=== PATIENT | female | born 1965 | race Caucasian/White ===

== ENCOUNTER → 2019-10-26 13:22 | Outpatient (CLI) | payer OTHER, SELFPAY ==
--- NOTE | ~2019-10-26 | MM_ITS ---
EXAMINATION: MM screening [facility] w deven HISTORY: Screening mammogram TECHNIQUE: Craniocaudal and mediolateral oblique 3-D tomosynthesis images were obtained and synthetic 2-D images were generated. CAD analysis was submitted and interpreted. COMPARISON: Comparison to multiple prior studies sequentially, with oldest reviewed study dated 11/2015.. BREAST PARENCHYMAL COMPOSITION: There are scattered areas of fibroglandular density. FINDINGS: There is no evidence of suspicious mass, calcification, or architectural distortion to sugg est malignancy in either breast. There has been no suspicious interval change. IMPRESSION: 1. No mammographic evidence of malignancy. 2. Recommend routine screening mammography in one year. BI-RADS Category 1: Negative Reviewed, dictated and finalized at location A. ERS ADVISER
== END ==
PROVIDERS: Visit Provider Obstetrics & Gynecology
DX: Z12.31 Encounter for screening mammogram for malignant neoplasm of breast (principal)
CPT/HCPCS: 77063; 77067

== ENCOUNTER → 2021-01-22 16:55 | Outpatient (CLI) | payer BC, OTHER, SELFPAY ==
--- NOTE | ~2021-01-22 | MM_ITS ---
EXAMINATION: MM screening [facility] BI w deven HISTORY: Screening mammogram TECHNIQUE: Craniocaudal and mediolateral oblique 3-D tomosynthesis images were obtained and synthetic 2-D images were generated. CAD analysis was submitted and interpreted. COMPARISON: 10/26/2019, 08/29/2018, 08/27/2017 bilateral digital screening mammogram examinations BREAST PARENCHYMAL COMPOSITION: There are scattered areas of fibroglandular density. FINDINGS: There is focal asymmetry in the upper outer quadrant of the left breast at mid depth on crayon sawyer niocaudal view. Diagnostic left mammogram and left breast ultrasound examination are recommended. There is no evidence of suspicious mass, calcification, or architectural distortion to suggest malign kaylee in the right breast. There has been no suspicious interval change on the right. IMPRESSION: 1. Left upper outer quadrant mammographic asymmetry 2. Diagnostic left mammogram and left breast ultrasound examination are recommended BI-RADS Category 0: Incomplete: Needs additional imaging evaluation. Reviewed, dictated and finalized at location A. IMPRESSION: 1. Left upper outer quadrant mammographic asymmetry 2. Diagnostic left mammogram and left breast ultrasound examination are recomme nded BI-RADS Category 0: Incomplete: Needs additional imaging evaluation.
== END ==
PROVIDERS: Visit Provider Obstetrics & Gynecology
DX: Z12.31 Encounter for screening mammogram for malignant neoplasm of breast (principal); R92.8 Other abnormal and inconclusive findings on diagnostic imaging of breast
CPT/HCPCS: 77063; 77067

== ENCOUNTER 2021-02-06 08:49 | Outpatient (CLI) | payer BC, OTHER, SELFPAY ==
--- NOTE | ~2021-02-06 | MMUS_ITS ---
EXAMINATION: MM diagnostic mammo BI, US breast BI limited HISTORY: Left upper quadrant mammographic asymmetry reported on 01/22/2021 screening mammogram. Questi on of right breast mass upon retrospective review of right screening mammogram views of 01/22/2021. TECHNIQUE: Additional 3-D tomosynthesis images of both breasts were performed and synthetic 2-D image s were generated. CAD analysis was submitted and interpreted. High resolution bilateral upper outer q uadrant breast ultrasound was performed. COMPARISON: 01/22/2021 bilateral digital screening mammogram FINDINGS: MAMMOGRAPHIC FINDINGS: There is asymmetry and question of architectural distortion in the upper outer left breast. No reproducible focal mass is suggested on either side. ULTRASOUND: Right upper outer quadrant breast ultrasound: No suspicious mass or shadowing is detected. Left upper outer quadrant breast ultrasound: 1:00 3 cm from nipple: Parallel circumscribed sonolucency measuring 5.3 x 1.5 x 1.46 mm, consistent w ith cyst 1:00 3 cm from nipple: 3.1 x 1.7 x 2.1 mm cyst 3:00 2 cm from nipple: 3.0 x 1.4 x 3.5 mm simple cyst No suspicious mass or shadowing is detected. IMPRESSION: 1. Benign left breast cyst. No evidence of malignancy in either breast. 2. Routine annual mammographic screening is recommended. BI-RADS Category 2: Benign finding(s). Reviewed, dictated and finalized at location A. IMPRESSION: 1. Benign left breast cyst. No evidence of malignancy in either breast. 2. Routine annual mammographic screening is recommended. BI-RADS Category 2: Benign finding(s).
== END 2021-02-06 08:50 | disposition home or self-care (01) ==
LOC: CHSIMG 08:53
PROVIDERS: Visit Provider Obstetrics & Gynecology
DX: R92.8 Other abnormal and inconclusive findings on diagnostic imaging of breast (principal)
CPT/HCPCS: 76642; 77066

== ENCOUNTER 2021-03-07 09:41 | Outpatient (CLI) | payer BC, OTHER, SELFPAY | END 2021-03-07 09:42 | disposition home or self-care (01) | PROVIDERS: Visit Provider Obstetrics & Gynecology | DX: R68.89 Other general symptoms and signs (principal) | CPT/HCPCS: 36415; 84443 ==

== ENCOUNTER 2022-02-09 07:39 | Outpatient (CLI) | payer BC, OTHER, SELFPAY ==
--- NOTE | ~2022-02-09 | MM_ITS ---
EXAMINATION: MM screening [facility] BI w deven HISTORY: Screening TECHNIQUE: Craniocaudal and mediolateral oblique 3-D tomosynthesis images were obtained and synthetic 2-D images were generated. CAD analysis was submitted and interpreted. COMPARISON: Comparison to multiple prior studies sequentially, with oldest reviewed study dated 06/30. BREAST PARENCHYMAL COMPOSITION: Breast composed of scattered areas of fibroglandular density FINDINGS: There is no evidence of suspicious mass, calcification, or architectural distortion to sugg est malignancy in either breast. There has been no suspicious interval change. IMPRESSION: 1. No mammographic evidence of malignancy. 2. Recommend routine screening mammography in one year. BI-RADS Category 1: Negative Reviewed, dictated and finalized at location A.
== END 2022-02-09 07:40 | disposition home or self-care (01) ==
PROVIDERS: Visit Provider Obstetrics & Gynecology
DX: Z12.31 Encounter for screening mammogram for malignant neoplasm of breast (principal)
CPT/HCPCS: 77063; 77067

== ENCOUNTER 2023-06-21 14:00 | Outpatient (CLI) | payer OTHER, SELFPAY ==
--- NOTE | ~2023-06-21 | MM_ITS ---
EXAMINATION: MM screening [facility] BI w deven HISTORY: Screening mammogram TECHNIQUE: Craniocaudal and mediolateral oblique 3-D tomosynthesis images were obtained and synthetic 2-D images were generated. CAD analysis was submitted and interpreted. COMPARISON: 02/09/2022 bilateral screening mammogram 02/06/2021 diagnostic bilateral mammogram and Limited bilateral breast ultrasound 01/22/2021, 10/26/2019 bilateral screening mammogram examinations BREAST PARENCHYMAL COMPOSITION: There are scattered areas of fibroglandular density. FINDINGS: There is no evidence of suspicious mass, calcification, or architectural distortion to sugg est malignancy in either breast. There has been no suspicious interval change. IMPRESSION: 1. No mammographic evidence of malignancy. 2. Recommend routine screening mammography in one year. BI-RADS Category 1: Negative Reviewed, dictated and finalized at location A.
== END 2023-06-21 14:01 | disposition home or self-care (01) ==
LOC: CHSIMG 14:02
PROVIDERS: PCP Family Medicine Sports Medicine; Visit Provider Obstetrics & Gynecology
DX: Z12.31 Encounter for screening mammogram for malignant neoplasm of breast (principal)
CPT/HCPCS: 77063; 77067

== ENCOUNTER 2024-06-26 11:58 | Outpatient (CLI) | payer OTHER, SELFPAY ==
--- NOTE | ~2024-06-26 | MM_ITS ---
EXAMINATION: MM screening [facility] BI w deven HISTORY: Screening mammogram TECHNIQUE: Craniocaudal and mediolateral oblique 3-D tomosynthesis images were obtained and synthetic 2-D images were generated. CAD analysis was submitted and interpreted. COMPARISON: 06/21/2023, 02/09/2022, 01/22/2021 BREAST PARENCHYMAL COMPOSITION:Not Dense. There are scattered areas of fibroglandular density. FINDINGS: No suspicious mass, calcification, or architectural distortion are identified in either araceli ast to suggest malignancy. There has been no suspicious interval change. IMPRESSION: No mammographic evidence of malignancy. Recommend routine screening mammography in one year. BI-RADS Category 1: Negative Reviewed, dictated and finalized at location .
== END 2024-06-26 11:59 | disposition home or self-care (01) ==
PROVIDERS: PCP Family Medicine Sports Medicine; Visit Provider Obstetrics & Gynecology
DX: Z12.31 Encounter for screening mammogram for malignant neoplasm of breast (principal)
CPT/HCPCS: 77063; 77067

== ENCOUNTER 2025-06-28 12:41 | Outpatient (CLI) | payer OTHER, SELFPAY ==
--- NOTE | ~2025-06-28 | MM_ITS ---
EXAMINATION: MM screening [facility] BI w deven HISTORY: Screening TECHNIQUE: Craniocaudal and mediolateral oblique 3-D tomosynthesis images were obtained and synthetic 2-D images were generated. CAD analysis was submitted and interpreted. COMPARISON: Comparison to multiple prior studies sequentially, with oldest reviewed study dated 10/26/2019. BREAST PARENCHYMAL COMPOSITION: Not dense: There are scattered areas of fibroglandular density. FINDINGS: There is no evidence of suspicious mass, calcification, or architectural distortion to suggest malignancy in either breast. There has been no suspicious interval change. IMPRESSION: 1. No mammographic evidence of malignancy. 2. Recommend routine screening mammography in one year. BI-RADS Category 1: Negative Reviewed, dictated and finalized at location B.
--- NOTE | ~2025-06-28 | DEXA_ITS ---
Bone Density Report Name: NITIN TELLEZ Age: 59 Sex: Female Ethnicity: White Date of : 1965 Indication: postmenopausal; screening for osteoporosis; parental hip fracture; prior fracture; rheumatoid arthritis; Referring Provider: Milton Junior Study: Bone densitometry was performed. Exam Date: June 28, 2025 Accession number: [id number] Bone Density: Region BMD T-score Z-score Classification AP Spine(L1-L4) 0.787 -2.4 -1.1 Osteopenia Femoral Neck (Left) 0.761 -0.8 0.4 Normal Total Hip (Left) 0.938 0.0 0.8 Normal Femoral Neck (Right) 0.721 -1.1 0.0 Osteopenia Total Hip (Right) 0.925 -0.1 0.7 Normal Femoral Neck Mean 0.741 -1.0 0.2 Normal Total Hip Mean 0.931 -0.1 0.7 Normal World Health Organization criteria for BMD impression classify patients as: Normal (T-score at or above -1.0), Osteopenia (T-score between -1.0 and -2.5), or Osteoporosis (T-score at or below -2.5). 10-year Fracture Risk: FRAX not reported because: Prior hip or vertebral fracture Clinical Information Provided by Patient: Have had a previous hip or vertebral fracture Has had a low trauma fracture Parent has had a hip fracture Has rheumatoid arthritis Has used the following medications: Vitamin D, Calcium Patient maximum height was 68 Menopause Age: 49 No regular weight bearing exercise Drinks caffeinated beverages Onset of menses at age 13 Number of children 2 Impression: The patient has low bone mass, based on the Total Spine T-score. The patient has risk factors, including: parental hip fracture, previous fracture. Discussion: INCREASED RISK OF FRACTURE DUE TO HISTORY OF FRACTURE. The patient's previous fracture puts the patient at high risk of a future fracture. In untreated patients, the risk of osteoporotic fracture increases approximately two-fold for each 1.0 SD decrease in T-score. Low bone density is not the only risk factor for fracture; also consider factors such as patient's age, frailty or poor health, risk of falling, risk of injury, previous osteoporotic fracture, family history of osteoporosis, cigarette smoking, low body weight, etc. Not everyone with a low trauma fracture has osteoporosis; osteomalacia and other metabolic bone disorders should also be considered. Patients who have osteoporosis should be evaluated for specific diseases and conditions (secondary causes) that may cause or contribute to bone loss and fracture risk. National Osteoporosis Foundation (NOF) recommends pharmacologic intervention for patients with a prior hip or vertebral fracture regardless of BMD T-score. The patient should follow a healthful lifestyle (good nutrition with adequate calcium and vitamin D, and appropriate weight-bearing exercise). Follow-Up: Consider a repeat BMD and Vertebral Fracture Assessment (VFA) exam in 2 years or sooner if medically necessary, to reassess this patient's status. Reported by: KATHI on 06/28/2025 1:14:00 PM. Reviewed, dictated and finalized at location A.
--- OUTSIDE RECORDS SUMMARY | 2025-06-28 13:15 | XMS_ITS | Clinical Summary ---
Author Organization [facility] Medical [facility] 1 Address [address] [place] [address] Care Team Providers Care Fur Ironer Name Role Phone Shanon Forman DO Primary Care Provider [phone] Allergies Active Allergy Reactions Criticality Noted Date Comments Adhesive Rash Medium 06/01/2018 Cannot tolerate paper tape but tolerates other types of tapes. Clindamycin Fexofenadine Leflunomide Rash Medium 06/25/2021 Methotrexate Other (See comments) Low 03/13/2021 Pseudoephedrine Sulfasalazine Angioedema,Rash,Othe r (See comments) High 03/12/2023 Lipis blistered and tingle Medications omeprazole (PriLOSEC) 20 mg capsule Take 1 capsule (20 mg total) by mouth as needed (gerd) 3 Active secukinumab (Cosentyx Pen) pen injector Inject 2 mL (300 mg total) under the skin every 4 (four) weeks Last taken 07/05/2024 4 Active CALCIUM ORAL Take 600 mg by mouth every morning Active cyclobenzaprine (FLEXERIL) 5 mg tablet Take 1 tablet (5 mg total) by mouth 3 (three) times a day as needed for muscle spasms 30 tablet 4 Active lidocaine (LIDODERM) 5 % Place 2 patches on the skin daily Remove & discard patch within 12 hours or as directed by MD. 60 patch 4 Active Additional Information Patient not taking.Reported on 03/01/2025 senna-docusate (PERICOLACE) 8.6-50 mgIndications:co nstipation Take 2 tablets by mouth 2 (two) times a day 120 tablet 4 Active Additional Information Patient not taking.Reported on 03/01/2025 silver sulfadiazine (SILVADENE, SSD) 1 % cream APPLY EXTERNALLY TO THE AFFECTED AREA DAILY 5 Active bexagliflozin 20 mg tablet Take 20 mg by mouth daily 5 Active Active Problems Problem Noted Date Diagnosed Date Pain in both feet 11/23/2024 Pain in right knee 11/23/2024 Acquired fusion of cervical spine 09/01/2024 Overview (02/21/2025): 3-[address] [facility] DDD (degenerative disc disease), cervical 2023 Paresthesia of upper limb 03/21/2024 Psoriatic arthritis 03/14/2024 Paresthesia of foot 03/09/2024 Peripheral sensory neuropathy 03/09/2024 Osteoarthritis 03/08/2024 Seropositive rheumatoid arthritis 03/08/2024 IFG (impaired fasting glucose) 04/22/2023 GERD (gastroesophageal reflux disease) Overview (05/16/2024): prio to meds for ctdz Psoriasis 04/22/2023 Overview (05/16/2024): since child elbow. ok sonce ctdz therapy. not psoriatic arthritis Systemic lupus erythematosus , organ or system involvement unspecified 04/22/2023 Overview (05/16/2024): 05/2022 Localized osteoarthritis of wrist 01/28/2023 Non-nephrotic range proteinuria 12/23/2022 Pre-diabetes 12/23/2022 Rheumatoid arthritis involving right hip 023 Stage 2 chronic kidney disease 12/23/2022 Fibrocystic breast disease (FCBD) 04/22/2021 Injury of right knee 10/03/2020 Overview (05/16/2024): Last Assessment & Plan: Work comp injury. Fell down stairs at her school 2 days ago. Sustained an injury to R knee. Evaluated at local ED. XR were negative. Having pain to R medial aspect of knee. Has full extension. Only able to bend to 90 degrees. Pain with ambulation. Using crutches, knee sleeve, and Tylenol. Arthritis of wrist, right 05/16/2019 Incomplete bladder emptying 01/12/2019 Stress incontinence of urine 01/12/2019 Recurrent UTI 01/02/2019 Hand pain 10/04/2018 Contact dermatitis 06/23/2017 Rash, skin 06/21/2017 Herniation of lumbar intervertebral disc without myelopathy 10/29/2015 Lumbar radiculopathy 10/24/2015 Immunizations Immunization Administration Dates Next Due Flucelvax Influenza Quad 09/14/2018 Hep A, Adult 03/09/2012 Hep A, Unspecified 03/09/2012 Hep B Vaccine 04/01/2010,09/10/2009,08/05/2009 Hep B, Unspecified 04/01/2010,09/10/2009, 009 Influenza, Quadrivalent, Spl it, Pediatric, Preservative Free, Intramuscular 06/08/2017 Influenza, Quadrivalent, Spl it, Preservative Free, Intramuscular 05/27/2020,06/22/2019 Influenza, Unspecified 05/27/2020,2018,09/14/2018,06/08 Td, adsorbed 06/17/1995 Tdap 12/27/2019 Typhoid Inactivated 03/09/2012 Typhoid, Unspecified 03/09/2012 ZOSTER Recombinant 09/01/2022,06/30/2022 Surgical History Surgery Date Site/Laterality Comments OTHER SURGICAL HISTORY Rectal and bladder prolapse: Surgical repair BACK SURGERY 08/30/2015 - 08/29/2016 APPENDECTOMY 08/30/2009 - 08/29/2010 BLADDER REPAIR 08/30/2010 - 08/29/2011 RECTAL PROLAPSE REPAIR 08/30/2010 - 08/29/2011 TUBAL LIGATION 08/30/2005 - 08/29/2006 ENDOMETRIAL ABLATION [id number] ANTERIOR CRUCIATE LIGAMENT REPAIR Medical History Medical History Date Comments Hx Other Medical Rectal and blad arely prolapse Hx Other Medical 10/2015 L3 microdiscect leah Hx Other Medical 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 Headache Rheumatoid arthritis (HCC) Dermatitis Diverticulitis of colon Gastric reflux Chronic kidney disease Kidney infection PONV (postoperative nausea a nd vomiting) Family History Medical History Relation Name Comments Diabetes Brother Cancer Father Melanoma Father Multiple sclerosis Father Multiple sclerosis; Ovarian cancer Father's Sister Diabetes Mother Heart disease Mother Cancer Sister Diabetes Sister Leukemia Sister Multiple sclerosis Sister Multiple sclerosis; Relation Name Status Comments Brother Father Father's Sister Mother Sister Social History Tobacco Use Types Packs/Day Years Used Date Smoking Tobacco: Never Passive Smoke Exposure: Never Smokeless Tobacco: Never Tobacco Cessation:Counseling Given: No Alcohol Use Standard Drinks/Week Comments Not Currently 0 (1 standard drink = 0.6 oz pur e alcohol) AUDIT-C Answer Date Recorded Q1: How often do you have a drink containing alcohol? Never 08/08/2024 Q2: How many drinks containi ng alcohol do you have on a typical day when you are drinking? Patient does not drink Q3: How often do you have si x or more drinks on one occasion? Never 08/08/2024 Personal Safety Answer Date Recorded Have you ever been in or are you currently in a harmful physical or emotional relationship or is someone making you feel afraid or unsafe? 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 Gender Identity Not on file Sexual Orientation Not on file Obstetrics History Last Filed Vital Signs Vital Sign Reading Time Taken Comments Blood Pressure 128/67 08/10/2024 7:58 AM CESSATION SYSTEMS OUTREACH SPECIALIST Pulse 83 08/10/2024 7:58 AM CESSATION SYSTEMS OUTREACH SPECIALIST Temperature 36.6 C (97.9 F) 08/10/2024 7:58 AM CESSATION SYSTEMS OUTREACH SPECIALIST Respiratory Rate 16 08/10/2024 7:58 AM CESSATION SYSTEMS OUTREACH SPECIALIST Oxygen Saturation 93% 08/10/2024 7:58 AM CESSATION SYSTEMS OUTREACH SPECIALIST Inhaled Oxygen Concentration - - Weight 77.3 kg (170 lb 6.4 oz) 03/01/2025 10:18 AM CDT Height 172.7 cm (5' 8) 03/01/2025 10:18 AM CDT Body Mass Index 25.91 03/01/2025 10:18 AM CDT Plan of Treatment Health Maintenance Due Date Last Done Comments Breast Cancer Screening-Mammogram 1965 Cervical Cancer Screening 1967 Colon Cancer Screening-Colonoscopy 1967 Depression Screening 1967 Hepatitis C Screening 1967 Regular Well Visit/Exam 18-64 11/16/1985 Covid-19 Vaccine (3 - Moderna risk series) 11/22/2020 10/25/2020, 09/17/2020 Influenza Vaccine (#1) 2025 , 05/27/2020, 06/22/2019, Additional history exists DTaP/Tdap/Td Vaccine (2 - Td or Tdap) 12/26/2029 12/27/2019, 06/17/1995 Hepatitis B Screening Completed 04/01/2010 , 04/01/2010, 09/10/2009, Additional history exists Zoster Vaccine Completed 09/01/2022, 06/30/2022 Pneumococcal vaccine <65 Aged Out No longer eligible based on patient's age to complete this topic Medical Devices Implanted Type Area Ram Car Operator Device Identifier Shelf Expiration Date Model / Serial / Lot Bioventus Osteoamp Select Fiber 2.5cc Oasf-025 - [id number] - [id number] Implanted:Qty: 1 on 08/08/2024 by Matthew Fernandez MD at [facility] BIOVENTUS 01/04/2029 OASF-025 / [id number] / Orthofix Spinal Implants Screw Spinal Set Posterior Cervical Northstar [id number] - [id number] Implanted:Qty: 8 on 08/08/2024 by Matthew Fernandez MD at [facility] N/A: Spine Cervical Orthofix Spinal Implants [id number] / / Orthofix Spinal Implants Screw Spn Post Cerv Plaxl Ext Tab Thrd Northstar 3.5x14mm [id number] - [id number] Implanted:Qty: 8 on 08/08/2024 by Matthew Fernandez MD at [facility] N/A: Spine Cervical Orthofix Spinal Implants [id number] / / Orthofix Spinal Implants Urbano Spn Post Cerv Contrd Ti Northstar 4.0x50mm [id number] - [id number] Implanted:Qty: 2 on 08/08/2024 by Matthew Fernandez MD at [facility] N/A: Spine Cervical Orthofix Spinal Implants [id number] / / Insurance [facility] [employer] GENERIC BLUE ACCESS [place] [facility] [address] [place] [address] [facility] [address] [place] [address] [facility] Advance Directives For more information, please contact: [phone] * Full Code (Latest Code Status on File) Date Activated Date Inactivated Comments 08/08/2024 6:36 PM 08/10/2024 10:14 PM Care Teams Fur Ironer Relationship Specialty Start Date End Date Shanon Forman DO [address] [place] [address] [place] [address] PCP - General Sports Medicine 04/10/24
--- OUTSIDE RECORDS SUMMARY | 2025-06-28 13:15 | XMS_ITS | Clinical Summary ---
Author Organization [facility] Address [address] [place] [address] Care Team Providers Care Motion Picture Commentator Name Role Phone Unknown, Provider Primary Care Provider Unavaila ble Source Comments [facility],non-owned Affiliates and Associated Physician Practices is amultiple site organization consisting of ambulatory clinics and hospital sitesin [place], [place], [place] and [place]. This disclosure is being madepursuant to the Care Everywhere program and may not contain all information available regarding this patient. Last updated 18.[facility] Allergies Active Allergy Reactions Criticality Noted Date Comments Adhesive Sensitivity Rash Medium 06/01/2018 Cannot tolerate paper tape but tolerates other types of tapes. Clindamycin Rash Medium 06/01/2018 Blisters on outside and inside of body Pseudoephedrine Base Palpitations Medium 06/01/2018 Heart races, aggravates her SVT Sulfasalazine Other Medium 04/22/2023 Lipis blistered and tingle Medications * Be aware that medications may not be up to date on this document. Alwaysverify current medications with the patient. Orencia ClickJect 125 MG/ML auto-injector pen 06/14/2023 A ctive omeprazole (PriLOSEC) 20 MG capsule 08/29/2023 Active Active Problems Problem Noted Date Diagnosed Date GERD (gastroesophageal reflux disease) 3 12/08/2023 Overview (12/08/2023): prio to meds for ctdz IFG (impaired fasting glucose) 04/22/2023 0 12/08/2023 Psoriasis 04/22/2023 12/08/2023 Overview (12/08/2023): since child elbow. ok sonce ctdz therapy. not psoriatic arthritis Systemic lupus erythematosus , organ or system involvement unspecified 04/22/2023 12/08/2023 Overview (12/08/2023): 05/2022 Localized osteoarthritis of wrist 01/28/2023 12/08/2023 H/O bladder repair surgery 12/23/202212/07 Non-nephrotic range proteinuria 12/23/2022 12/08/2023 Pre-diabetes 12/23/2022 12/08/2023 Stage 2 chronic kidney disease 12/23/2022 0 12/08/2023 Rheumatoid arthritis involving right hip 023 12/08/2023 Fibrocystic breast disease (FCBD) 04/22/2021 12/08/2023 Injury of right knee 10/03/2020 12/08/2023 Overview (12/08/2023): Last Assessment & Plan: Work comp injury. Fell down stairs at her school 2 days ago. Sustained an injury to R knee. Evaluated at local ED. XR were negative. Having pain to R medial aspect of knee. Has full extension. Only able to bend to 90 degrees. Pain with ambulation. Using crutches, knee sleeve, and Tylenol. Arthritis of wrist, right 05/16/20192023 Incomplete bladder emptying 01/12/201911/28 Stress incontinence of urine 01/12/201905/2024 Recurrent UTI 01/02/2019 12/08/2023 Hand pain 10/04/2018 12/08/2023 Contact dermatitis 06/23/2017 12/08/2023 Herniation of lumbar intervertebral disc without myelopathy 10/29/2015 12/08/2023 Lumbar radiculopathy 10/24/2015 12/08/2023 Resolved Problems Problem Noted Date Diagnosed Date Resolved Date Rash, skin 06/21/2017 12/08/2023 01/05/2024 Immunizations Immunization Administration Dates Next Due Covid Moderna primary monova lent 12+ yr 0.5mL 10/25/2020,09/17/2020 HEP A VACCINE, ADULT 03/09/2012 HEP B VACCINE, ADULT 3 DOSE 04/01/2010, 0,08/05/2009 INFLUENZA VACCINE, CELL CULT URE, QUADR. (FLUCELVAX QUADRIVALENT; 6MO+) (CCIIV4) 09/14/2018 INFLUENZA VACCINE, QUADR. (F LUZONE PF QUADRIVALENT; 6-35MO), 0.25 ML (IIV4) 06/08/2017 INFLUENZA VACCINE, QUADR. (F LUZONE; FLULAVAL; FLUARIX; AFLURIA QUADRIVALENT; 6MO+), 0.5 ML (IIV4) 05/27/2020,06/22/2019 TD (AGE 7-ADULT) 06/17/1995 TDAP, HISTORIC VACCINE 12/27/2019 TYPHOID IM 03/09/2012 Zoster Hzv Vacc Recombinant Inj Im 09/01/2022, Social History Tobacco Use Types Packs/Day Years Used Date Smoking Tobacco: Never Smokeless Tobacco: Never Tobacco Cessation:Counseling Given: Not Answered Alcohol Use Standard Drinks/Week Comments Never 0 (1 standard drink = 0.6 oz pur e alcohol) PHQ-2 Answer Date Recorded Patient Health Questionnaire-2 Score 0 06/15/2023 Comments No Sex and Gender Information Value Date Recorded Sex Assigned at Not on file 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 Gender Identity Not on file Sexual Orientation Not on file Last Filed Vital Signs Vital Sign Reading Time Taken Comments Blood Pressure 110/68 12/08/2023 10:10 AM CDT Pulse 82 12/08/2023 10:10 AM CDT Temperature 36.6 C (97.9 F) 12/08/2023 10:10 AM CDT Respiratory Rate 18 06/15/2023 1:40 PM CDT Oxygen Saturation 97% 12/08/2023 10:10 AM CDT Inhaled Oxygen Concentration - - Weight 79.5 kg (175 lb 4.8 oz) 12/08/2023 10:10 AM CDT Height - - Body Mass Index - - Plan of Treatment Health Maintenance Due Date Last Done Comments COLOGUARD (AGES 45-75) - COLON CA SCREENING 1967 COLON MONITORING 1967 COLONOSCOPY - COLON CA SCREENING 1967 CT COLONOGRAPHY - COLON CA SCREENING 1967 Colorectal Cancer Screening 1967 FIT - COLON CA SCREENING 1967 FLEX SIG - COLON CA SCREENING 1967 HIV SCREENING 11/16/1982 HEPATITIS C SCREENING 11/12/1985 PAP SMEAR 11/16/1988 PNEUMOCOCCAL VACCINE 50+ (1 of 1 - PCV) 11/16/2017 DEPRESSION SCREENING 08/30/2024 06/15/2023 COVID-19 VACCINE (3 - season) 2025 10/25/2020, 09/17/2020 INFLUENZA VACCINE (#1) 2025 , 06/22/2019, 09/14/2018, Additional history exists MAMMOGRAM 06/21/2025 06/21/2023 LIPID TESTING 11/07/2028 11/08/2023 DTAP/TDAP/TD VACCINES (3 - Td or Tdap) 12/26/2029 12/27/2019, 06/17/1995 HEPATITIS B VACCINE Completed 04/01/2010, 09/10/2009, 08/05/2009 ZOSTER VACCINE Completed 09/01/2022, 06/30/2022 HIB VACCINE Aged Out No longer eligi ble based on patient's age to complete this topic HPV VACCINE Aged Out No longer eligi ble based on patient's age to complete this topic MENINGOCOCCAL (Group B) VACCINE SHARED DECISION-MAKING Aged Out No longer eligible based on patient's age to complete this topic MENINGOCOCCAL GROUPS A/C/Y/W VACCINE Aged Out No longer eligible based on patient's age to complete this topic Insurance [employer] Care Teams Motion Picture Commentator Relationship Specialty Start Date End Date Unknown, Provider PCP - General 06/15/23
== END 2025-06-28 12:42 | disposition home or self-care (01) ==
PROVIDERS: PCP Family Medicine Sports Medicine; Visit Provider Obstetrics & Gynecology
DX: M85.80 Other specified disorders of bone density and structure, unspecified site (principal); Z12.31 Encounter for screening mammogram for malignant neoplasm of breast; M85.89 Other specified disorders of bone density and structure, multiple sites
CPT/HCPCS: 77063; 77067; 77080